=== PATIENT | female | born 2000 | race Caucasian/White ===

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

== ENCOUNTER 2025-04-13 11:57 | Emergency (ER) | payer MEDICAID, OTHER ==
[~2025-04-13] VITALS: Ht 157.5 cm; Wt 75.0 kg
[2025-04-13 12:22] VITALS: TEMP 98.4
[2025-04-13 12:36] LABS: COVID AG,FIA SOURCE NASAL SWAB
[2025-04-13 12:57] LABS: INFLUENZA TYPE A NEGATIVE FOR TYPE A (NEGATIVE); INFLUENZA TYPE B NEGATIVE FOR TYPE B (NEGATIVE); SARS-COV2 (COVID) ANTIGEN,FIA Negative (Negative)
[2025-04-13 13:15] VITALS: BP 129/88
[2025-04-13] MEDS: SODIUM CHLORIDE 0.9% 1,000 ML IV ONE (14:13)
[2025-04-13] MEDS ORDERED: 0.9% SODIUM CHLORIDE 5 ML NEB SOLUTION NEB ONE (14:56)
[2025-04-13] MEDS: ALBUTEROL SULFATE 2.5 MG/0.5 ML NEB SOLUTION NEB ONE (14:57)
[2025-04-13 15:00] VITALS: PULSE 97; RESP 20; O2SAT 99
[2025-04-13 15:12] VITALS: PULSE 95; RESP 20; O2SAT 100
[2025-04-13] MEDS ORDERED: BENZ-227 PO (15:32)
[2025-04-13] MEDS ORDERED: GUAIF600 PO (15:32)
[2025-04-13] MEDS ORDERED: PRED-554 PO (15:32)
[2025-04-13] MEDS ORDERED: ALBU18HF12 IH (15:32)
== END 2025-04-13 15:51 | disposition home or self-care (01) ==
LOC: EMS 11:58
DX: J06.9 Acute upper respiratory infection, unspecified (principal); Z20.822 Contact with and (suspected) exposure to COVID-19
CPT/HCPCS: 99284; 96360; 71046; 87426; 87430; 87804; 94640; J7030; J7613